=== PATIENT | male | born 1945 | race Caucasian/White ===

== ENCOUNTER 2017-01-23 17:39 | Inpatient (IN) | payer OTHER ==
--- NOTE | 2017-01-23 17:51 | CPEKG ---
Heart Rate: 65 RR Interval: 923 P-R Interval: 204 QRSD Interval: 140 QT Interval: 432 QTC Interval: 450 P [place]: 56 QRS [place]: -75 T Wave [place]: 58 EKG Severity - ABNORMAL ECG - EKG Impression: SINUS RHYTHM EKG Impression: PROBABLE LEFT ATRIAL ABNORMALITY EKG Impression: RIGHT BUNDLE BRANCH BLOCK EKG Impression: INFERIOR INFARCT, AGE INDETERMINATE Electronically Signed By: Gabriele Faith 25-Jan-2017 15:12:07
[2017-01-23] MEDS ORDERED: ASPIRIN 81 MG CHEWABLE TAB PO ONE (17:59)
[2017-01-23 18:06] LABS: % IMMATURE GRANULYOCYTES 0.4 % (0.0-1.1); ABSOLUTE IMMATURE GRANULOCYTES 0.04 10^3/uL (0.00-0.10); ADD DIFF? NO; ADD MORPH? NO; ADD SCAN? NO; ATYPICAL LYMPHOCYTE FLAG 10 (0-99); FRAGMENT RBC FLAG 0 (0-99); HEMATOCRIT 43.2 % (40.0-51.0); HEMOGLOBIN 14.8 g/dL (13.7-17.5); LEFT SHIFT FLG 0 (0-99); LIPEMIA HEMOLYSIS FLAG 90 (0-99); MEAN CELL HEMOGLOBIN 32.7 pg (27.9-34.1); MEAN CELL HEMOGLOBIN CONCENTR. 34.3 g/dL (32.4-36.7); MEAN CELL VOLUME 95.4 fL (81.5-99.8); MEAN PLATELET VOLUME 10.8 fL (8.7-11.7); PLATELET CLUMPS FLAG 10 (0-99); PLATELET COUNT 190 10^3/uL (150-400); RED BLOOD CELL COUNT 4.53 10^6/uL (4.40-6.38); RED CELL DISTRIBUTION WIDTH 13.1 % (11.5-15.2)
[2017-01-23 18:18] LABS: ANION GAP 11 mEq/L (8-16); CALCIUM 9.6 mg/dL (8.5-10.4); CARBON DIOXIDE 21 mEq/l (22-31); CHLORIDE 109 mEq/L (97-110); CREATININE 1.1 mg/dL (0.7-1.3); GLOMERULAR FILTRATION RATE > 60; GLUCOSE 96 mg/dL (70-100); POTASSIUM 5.1 mEq/L (3.5-5.2); SODIUM 141 mEq/L (134-144); SPECIMEN HEMOLYSIS 129
[2017-01-23 18:29] LABS: TROPONIN I 0.231 ng/mL (0-0.034)
--- NOTE | 2017-01-23 18:30 | EDPHY ---
HPI/HX/ROS/PE/MDM Narrative: CHIEF COMPLAINT: Chest pain. HPI: This patient is a 71 year old male arriving with his complaining of chest pain onset late this morning. He had been doing yard work this morning, and came in to eat an apple, and developed chest pain that he thought might be indigestion. The pain increased and spread from shoulder to shoulder, and he felt pressure like "a horse standing on my chest". This pain is similar to previous CABG, but not as severe. He states his hands became cold and numb. He took three doses of Nitro as prescribed with no relief. He was able to fall asleep for about two hours, but when he woke, the pain was still present. He took 650mg of naproxen sodium and his metoprolol, which caused some stomach discomfort but had no effect on his chest pain. His discomfort has been between 7 and 9/10 in severity. REVIEW OF SYSTEMS: Aside from elements discussed in the HPI, a comprehensive 10-point review of systems was reviewed and is negative. PMH: CABG SOCIAL HISTORY: at bedside. Dr. Kaur insurance consultant. PHYSICAL EXAM: General:Patient is alert, in no acute distress. ENT:Eyes are normal to inspection. ENT inspection normal. Neck: Normal inspection. Full range of motion. Respiratory:No respiratory distress. Breath sounds normal bilaterally. Cardiovascular: Regular rate and rhythm. Strong peripheral pulses. Normal cap refill. Abdomen:The abdomen is nontender to palpation. There are no peritoneal signs. There are normal bowel sounds. Back: Normal to inspection. No tenderness to palpation. Skin: Normal color. No rash. Warm and dry. Extremities: Normal appearance. Full range of motion. Neuro: Oriented x3. Normal motor function. Normal sensory function. Portions of this note were transcribed by an ED scribe. I personally performed the history, physical exam, and medical decision making; and confirm the accuracy of the information in the transcribed note. ED Course: Plan for EKG, chest x-ray, labs including CBC, BMP, Troponin. The 12 lead EKG was interpreted by myself. See hard copy and/or "tracemaster" electronic copy for interpretation. Troponin elevated at 0.231 18:[address] Larios, insurance consultant. Patient transferred to care of Dr. Fernandez for cardiac catheterization. MDM: This patient presents with ongoing chest pain in the setting of CABG and elevated troponin. As such, I think he is having an NSTEMI and requires catheterization urgently. I see no signs of PE, PTX, TAD or PNA. - Data Points Laboratory Results: Laboratory Results 01/23/17 17:55 01/23/17 17:55 01/23/17 01/23/17 17:55 17:55 WBC 10.06 10^3/uL H 10^3/uL (3.80-9.50) RBC 4.53 10^6/uL 10^6/uL (4.40-6.38) Hgb 14.8 g/dL g/dL (13.7-17.5) Hct 43.2 % % (40.0-51.0) MCV 95.4 fL fL (81.5-99.8) MCH 32.7 pg pg (27.9-34.1) MCHC 34.3 g/dL g/dL (32.4-36.7) RDW 13.1 % % (11.5-15.2) Plt Count 190 10^3/uL 10^3/uL (150-400) MPV 10.8 fL fL (8.7-11.7) Neut % (Auto) 70.2 % % (39.3-74.2) Lymph % (Auto) 21.4 % % (15.0-45.0) [place] % (Auto) 6.1 % % (4.5-13.0) Eos % (Auto) 1.4 % % (0.6-7.6) Baso % (Auto) 0.5 % % (0.3-1.7) Nucleat RBC Rel Count 0.0 % % (0.0-0.2) Absolute Neuts (auto) 7.07 10^3/uL H 10^3/uL (1.70-6.50) Absolute Lymphs (auto) 2.15 10^3/uL 10^3/uL (1.00-3.00) Absolute Monos (auto) 0.61 10^3/uL 10^3/uL (0.30-0.80) Absolute Eos (auto) 0.14 10^3/uL 10^3/uL (0.03-0.40) Absolute Basos (auto) 0.05 10^3/uL 10^3/uL (0.02-0.10) Absolute Nucleated RBC 0.00 10^3/uL 10^3/uL (0-0.01) Immature Gran % 0.4 % % (0.0-1.1) Immature Gran # 0.04 10^3/uL 10^3/uL (0.00-0.10) Sodium 141 mEq/L mEq/L (134-144) Potassium 5.1 mEq/L mEq/L (3.5-5.2) Chloride 109 mEq/L mEq/L (97-110) Carbon Dioxide 21 mEq/l L mEq/l (22-31) Anion Gap 11 mEq/L mEq/L (8-16) BUN 23 mg/dL mg/dL (7-23) Creatinine 1.1 mg/dL mg/dL (0.7-1.3) Estimated GFR > 60 Glucose 96 mg/dL mg/dL (70-100) Calcium 9.6 mg/dL mg/dL (8.5-10.4) Troponin I 0.231 ng/mL H ng/mL (0-0.034) Specimen Hemolysis 129 Medications Given: Discontinued Medications Aspirin (Aspirin) 324 mg PO EDNOW ONE Stop: 01/23/17 18:00 Last Admin: 01/23/17 18:02 Dose: 324 mg Clopidogrel Bisulfate (Plavix) 600 mg PO ONCE ONE Stop: 01/23/17 20:53 Last Admin: 01/23/17 21:29 Dose: Not Given Morphine Sulfate (Morphine) 4 mg IVP EDNOW ONE Stop: 01/23/17 18:32 Last Admin: 01/23/17 18:33 Dose: 4 mg General Time Seen by Provider: 01/23/17 18:06 Initial Vital Signs: Initial Vital Signs Temperature (C) 36.6 C 01/23/17 17:40 Heart Rate 68 01/23/17 17:40 Respiratory Rate 18 01/23/17 17:40 Blood Pressure 150/67 H 01/23/17 17:40 O2 Sat (%) 94 01/23/17 17:40 O2 Delivery Mode Room Air Allergies/Adverse Reactions: Penicillins Allergy (Severe, Verified 01/23/17 17:41) Swelling/neck,face,throat Sulfa (Sulfonamide Antibiotics) Allergy (Unknown, Verified 01/23/17 17:41) Unknown codeine [Codeine] Allergy (Verified 01/23/17 17:41) DEDRICK Adverse Reaction (Unknown, Uncoded 02/01/14 10:12) Unknown Home Medications: Medication Instructions Recorded Aspirin EC [Aspirin EC 81 mg] 81 mg PO DAILY 04/03/11 Acetaminophen [Tylenol ES 500 mg 500 mg PO Q6 PRN 01/23/17 (*)] Calcium Carb W/Vit D [Calcium Carb 500 mg PO DAILY 01/23/17 W/Vit D 500/200 (*)] Docusate Sodium [Colace 100 MG (*)] 100 mg PO DAILY PRN 01/23/17 FLUoxetine [Prozac 10 MG (*)] 10 mg PO DAILY 01/23/17 Furosemide [Lasix 20 MG (*)] 20 mg PO DAILY 01/23/17 Lisinopril [Zestril 5 mg (*)] 5 mg PO DAILY 01/23/17 Metoprolol Succinate Xr [Toprol Xl 25 mg PO DAILY 01/23/17 25 mg (*)] Naproxen Sodium 550 mg PO DAILY@12 01/23/17 Nitroglycerin [Nitrostat 0.4 mg 0.4 mg SL Q5M PRN 01/23/17 (*)] Pantoprazole Sodium [Protonix 40mg 40 mg PO DAILY 01/23/17 (*)] Simvastatin [Zocor] 40 mg PO DAILY18 01/23/17 Departure - Departure Disposition: To OP Cath/Surgery Clinical Impression: Non-STEMI (non-ST elevated myocardial infarction) Condition: Fair Report Scribed for: Matt Pan Report Scribed by: Fatemeh Douglas Date of Report: 01/23/17 Time of Report: 21:57
[2017-01-23] MEDS ORDERED: LIDOCAINE 1% 300 MG/30 ML SDV ONE (19:25)
[2017-01-23] MEDS ORDERED: fentaNYL 100 MCG/2 ML INJ ONE ×2 (19:25→20:10)
[2017-01-23] MEDS ORDERED: MIDAZOLAM 2 MG/2 ML VIAL ONE ×3 (19:25→20:10)
[2017-01-23] MEDS ORDERED: IOPAMIDOL (ISOVUE-370) 150 ML BTL IV ONE ×2 (19:25→20:19)
--- NOTE | 2017-01-23 19:38 | PDGENHP ---
History and Physical - Chief Complaint Chest pain - History of Present Illness 71-year-old male known severe coronary disease status post 4 vessel bypass graft last had a coronary angiogram in 2012 at that time he had subtotal left main with filling of the LAD and circumflex artery. There was a saphenous vein graft to the posterior lateral branches that was widely patent. There is a saphenous vein graft to a small diagonal. There was a mammary artery to the LAD. At that time his ejection fraction was normal. He has done well since that time until today at about 1 o'clock when he developed the acute onset of a horse sitting on his chest was associated with a toothache. There was no significant shortness of breath there was mild nausea with the need to burp. He had no diaphoresis. He called the on-call doctor who advised him to come to the emergency department on arrival to the ER he was continuing to have discomfort this was unrelieved with nitroglycerin is associated with elevated troponin and I am asked to evaluate the patient on my arrival is continued to have 6-7 chest discomfort associated with diaphoresis and pallor. He denies current nausea vomiting. He has had no PND orthopnea. He has had no palpitations or syncope. History Information - Allergies/Home Medication List Allergies/Adverse Reactions: Penicillins Allergy (Severe, Verified 01/23/17 17:41) Swelling/neck,face,throat Sulfa (Sulfonamide Antibiotics) Allergy (Unknown, Verified 01/23/17 17:41) Unknown codeine [Codeine] Allergy (Verified 01/23/17 17:41) DEDRICK Adverse Reaction (Unknown, Uncoded 02/01/14 10:12) Unknown Home Medications: Aspirin EC [Aspirin EC 81 mg] 81 mg PO DAILY 04/03/11 [Last Taken Unknown] Atorvastatin Calcium [Lipitor 20 mg] 40 mg PO DAILY 04/03/11 [Last Taken Unknown ] Furosemide [Lasix] 20 mg PO 04/03/11 [Last Taken Unknown] Imdur 04/03/11 [Last Taken Unknown] Lisinopril 5 mg PO 04/03/11 [Last Taken Unknown] Metoprolol Tartrate [Lopressor] 25 mg PO 04/03/11 [Last Taken Unknown] Prilosec 04/03/11 [Last Taken Unknown] Nitroglycerin [Nitrostat 0.4 mg (*)] 0.4 mg SL Q5M PRN 01/23/17 [Last Taken Unknown] I have personally reviewed and updated: medical history, surgical history - Past Medical History coronary artery disease - Family History Positive for: non-pertinent - Social History Smoking Status: Never smoked Review of Systems Constitutional: Reports: diaphoresis. Denies: chills, fever EENMT: Reports: mouth pain Cardiac: Reports: chest pain. Denies: lightheadedness, palpitations, syncope Respiratory: Reports: no symptoms Gastrointestinal: Reports: nausea. Denies: black stools, abdominal pain, constipation Genitourinary: Reports: no symptoms Muscolosketal: Reports: no symptoms Skin: Reports: no symptoms Neurological: Reports: no symptoms Hematologic/Lymphatic: Reports: no symptoms Immunologic/Allergy: Reports: no symptoms Physical Exam Temp Pulse Resp BP Pulse Ox 36.6 C 65 20 147/85 H 96 01/23/17 17:40 01/23/17 18:03 01/23/17 18:03 01/23/17 18:03 01/23/17 18:03 Constitutional: uncomfortable Eyes: anicteric sclera, EOMI Ears, Nose, Mouth, Throat: moist mucous membranes Cardiovascular: regular rate and rhythym, no murmur, rub, or gallop, pulses symmetric bilaterally, tachycardia, No JVD Peripheral Pulses: 1+: carotid (R), carotid (L), femoral (R), femoral (L), dorsalis-pedis (R), dorsalis-pedis (L) Respiratory: no respiratory distress, no rales or rhonchi Gastrointestinal: normoactive bowel sounds, soft, non-tender abdomen, no palpable masses Genitourinary: no bladder fullness, no bladder tenderness Skin: warm, no rashes or abrasions Musculoskeletal: full muscle strength, no muscle tenderness Neurologic: AAOx3, sensation intact bilaterally, No weakness, No numbness, No facial droop Psychiatric: interacting appropriately, anxious Lymph, Heme, Immunologic: no cervical LAD, no supraclavicular LAD Lab Data & Imaging Review 01/23/17 17:55 01/23/17 17:55 WBC 10.06 10^3/uL (3.80-9.50) H 01/23/17 17:55 RBC 4.53 10^6/uL (4.40-6.38) 01/23/17 17:55 Hgb 14.8 g/dL (13.7-17.5) 01/23/17 17:55 Hct 43.2 % (40.0-51.0) 01/23/17 17:55 MCV 95.4 fL (81.5-99.8) 01/23/17 17:55 MCH 32.7 pg (27.9-34.1) 01/23/17 17:55 MCHC 34.3 g/dL (32.4-36.7) 01/23/17 17:55 RDW 13.1 % (11.5-15.2) 01/23/17 17:55 Plt Count 190 10^3/uL (150-400) 01/23/17 17:55 MPV 10.8 fL (8.7-11.7) 01/23/17 17:55 Neut % (Auto) 70.2 % (39.3-74.2) 01/23/17 17:55 Lymph % (Auto) 21.4 % (15.0-45.0) 01/23/17 17:55 [place] % (Auto) 6.1 % (4.5-13.0) 01/23/17 17:55 Eos % (Auto) 1.4 % (0.6-7.6) 01/23/17 17: Baso % (Auto) 0.5 % (0.3-1.7) 01/23/17 17: Nucleat RBC Rel Count 0.0 % (0.0-0.2) 01/23/17 17: Absolute Neuts (auto) 7.07 10^3/uL (1.70-6.50) H 01/23/17 17:55 Absolute Lymphs (auto) 2.15 10^3/uL (1.00-3.00) 01/23/17 17:55 Absolute Monos (auto) 0.61 10^3/uL (0.30-0.80) 01/23/17 17:55 Absolute Eos (auto) 0.14 10^3/uL (0.03-0.40) 01/23/17 17:55 Absolute Basos (auto) 0.05 10^3/uL (0.02-0.10) 07/24/17 17:55 Absolute Nucleated RBC 0.00 10^3/uL (0-0.01) 01/23/17 17:55 Immature Gran % 0.4 % (0.0-1.1) 01/23/17 17:55 Immature Gran # 0.04 10^3/uL (0.00-0.10) 01/23/17 17:55 Sodium 141 mEq/L (134-144) 01/23/17 17:55 Potassium 5.1 mEq/L (3.5-5.2) 01/23/17 17:55 Chloride 109 mEq/L (97-110) 01/23/17 17:55 Carbon Dioxide 21 mEq/l (22-31) L 01/23/17 17:55 Anion Gap 11 mEq/L (8-16) 01/23/17 17:55 BUN 23 mg/dL (7-23) 01/23/17 17:55 Creatinine 1.1 mg/dL (0.7-1.3) 01/23/17 17:55 Estimated GFR > 60 01/23/17 17:55 Glucose 96 mg/dL (70-100) 01/23/17 17:55 Calcium 9.6 mg/dL (8.5-10.4) 01/23/17 17:55 Troponin I 0.231 ng/mL (0-0.034) H 01/23/17 17:55 Specimen Hemolysis 129 01/23/17 17:55 Imaging Review: Coronary angiogram from 19/09 routine reviewed. This revealed a small vein graft to a small diagonal branch. A large skip graft to the posterior lateral branches. Patent mammary artery to the LAD associated with critical left main disease in a nondominant right coronary. Ventriculogram showed normal ejection fraction Visualized and Interpreted EKG results: Yes EKG Interpretation: Positive for: right bundle branch block (T-wave inversions across the anterior precordium identified.) Assessment & Plan Assessment: Non-STEMI (non-ST elevated myocardial infarction) (Acute) Impression: Ongoing chest discomfort associated with elevation in troponin nondiagnostic EKG in patient with known coronary disease. Based on prior angiograms would suspect vein graft to the small obtuse marginal branch is culprit vessel with minimal EKG changes minimal hemodynamic changes. With ongoing symptoms despite nitroglycerin and aggressive medical therapy would recommend a diagnostic/therapeutic angiogram. Risks and benefits of this approach were discussed will proceed right femoral artery approach. Plan: Coronary angiogram with potential intervention. Continued aggressive medical therapy.
[2017-01-23] MEDS ORDERED: FAMOTIDINE 20 MG/NACL/50 ML BAG IV ONE (19:46)
[2017-01-23] MEDS ORDERED: BIVALIRUDIN 250 MG/5 ML VIAL IV ONE (19:55)
[2017-01-23] MEDS ORDERED: NITROGLYCERIN 1,500 MCG/15 ML VIAL MISC ONE (19:55)
[2017-01-23] MEDS ORDERED: METOPROLOL TARTRATE 5 MG/5 ML INJ ONE (20:09)
[2017-01-23] MEDS ORDERED: HEPARIN 10,000 UNIT/10 ML MDV ONE (20:23)
[2017-01-23] MEDS ORDERED: EPTIFIBATIDE 20 MG/10 ML VIAL IVP ONE (20:35)
[2017-01-23] MEDS ORDERED: NITROGLYCERIN 0.4 MG BTL SL PRN (20:52)
[2017-01-23] MEDS ORDERED: ATROPINE SULFATE 1 MG/10 ML SYR IVP PRN (20:52)
[2017-01-23] MEDS ORDERED: TEMAZEPAM 15 MG CAP PO PRN (20:52)
[2017-01-23] MEDS ORDERED: LORazepam 2 MG/ML INJ IVP PRN (20:52)
[2017-01-23] MEDS ORDERED: CLOPIDOGREL BISULFATE 75 MG TAB PO ONE (20:52)
[2017-01-23] MEDS ORDERED: ONDANSETRON 4 MG/2 ML VIAL IVP PRN (20:52)
[2017-01-23] MEDS ORDERED: METOPROLOL TARTRATE 100 MG TAB PO SCH (21:00)
[2017-01-23] MEDS ORDERED: NS 1,000 ML IV SCH (21:00)
[2017-01-23] MEDS ORDERED: EPTIFIBATIDE 100 ML IV SCH (21:00)
--- NOTE | 2017-01-23 21:01 | PDDXCAT ---
Diagnostic Cath Note - . Date: 01/23/17 Transfer Coordinator: Jim Indication: other (NSTEMI) - Materials Left Heart Cath size: 6F Left Heart Cath materials: standard multipack (JL4, JR4, pigtail), other (JARAMILLO, RCB) - Findings-Left Heart Catheterization LM: Subtotaled distally LAD: 100% occluded LCX: To and fro flow distally with no new focal stenosis RCA: Not injected: Previously non dominant rSVG: Patent to the posterolateral branches. 100% occluded a branch was small diagonal JARAMILLO: Patent to the LAD diagonal system EDP: 12 mm of mercury LVEF: 60% Wall motion: None Complications: None Estimated blood loss: <50ml Closure method: Angioseal Assessment: Non ST segment elevation myocardial infarction with thrombotic occlusion of the saphenous vein graft to the small lateral wall branch. Patent mammary artery to the LAD. Patent vein graft to the posterolateral wall. Severe 3 vessel wilton disease. Normal LV systolic function Plan: PCI of the vein graft to the lateral wall Intervention: Procedure: PCI of the saphenous vein graft to the lateral wall with thrombectomy and stenting. After reviewing diagnostic angiograms elected to proceed with emergency PCI. Patient was anticoagulated with Angiomax. Using a 6 [place] LCB guiding catheter saphenous vein graft was selectively intubated. Using a 0.014 luge wire the vein graft was entered the wire parked in the distal vessel. Multiple inflations with a 2 mm balloon were made to try to reestablish antegrade flow. There was penetration of the dye. It was elected to proceed with thrombectomy. Using a 6 [place] long back to me catheter thrombectomy was performed x2. Repeat angiograms revealed VIC grade 1 +to 2 flow. The wire was withdrawn during attempts to use a Angiojet thrombectomy catheter. Angiogram revealed penetration of dye it to the end of the posterolateral branch VIC grade 2 + flow. Distal lesion was seen in the vein graft. Elected to proceed with stenting. The vein graft was rewired with a 0.014 luge wire. A 2.5 x 32 mm bare metal stent was placed distally and deployed using a single inflation. A 2.75 x 32 mm stent was overlapped. A 3.0 x 38 mm drug-eluting was stent was placed to the ostium. Repeat angiogram showed VIC grade 2 +flow with complete filling of the lateral wall branch. Patient was started on an Integrilin infusion due to large thrombus burden. Therapeutic ACT was confirmed. The sheaths were removed using Angio-Seal. The patient has taken the ICU for continued care. Final diagnosis: 1. Non ST segment elevation myocardial infarction with thrombotic occlusion of the vein graft to lateral wall. 2. Status post successful PCI and stenting with thrombectomy. 3. Occlusion associated with normal LV systolic function and no regional wall motion abnormalities. Will pursue aggressive secondary prevention clinical follow-up. Patient Problems: Problems Problem Status Onset Non-STEMI (non-ST elevated myocardial infarction) Acute
[2017-01-23] MEDS ORDERED: CLOPIDOGREL BISULFATE 75 MG TAB ONE (21:03)
[2017-01-23] MEDS: METOPROLOL TARTRATE 50 MG TAB PO SCH (22:28)
[2017-01-23] MEDS: FAMOTIDINE 20 MG TAB PO SCH (22:40)
[2017-01-23 23:35] LABS: CK-MB INTERPRETATION POSITIVE (NEGATIVE)
[2017-01-24 02:34] LABS: CK-MB INTERPRETATION POSITIVE (NEGATIVE)
[2017-01-24 05:38] LABS: % IMMATURE GRANULYOCYTES 0.2 % (0.0-1.1); ABSOLUTE IMMATURE GRANULOCYTES 0.02 10^3/uL (0.00-0.10); ADD DIFF? NO; ADD MORPH? NO; ADD SCAN? NO; ATYPICAL LYMPHOCYTE FLAG 10 (0-99); FRAGMENT RBC FLAG 0 (0-99); HEMATOCRIT 40.6 % (40.0-51.0); HEMOGLOBIN 13.9 g/dL (13.7-17.5); LEFT SHIFT FLG 0 (0-99); LIPEMIA HEMOLYSIS FLAG 90 (0-99); MEAN CELL HEMOGLOBIN 32.6 pg (27.9-34.1); MEAN CELL HEMOGLOBIN CONCENTR. 34.2 g/dL (32.4-36.7); MEAN CELL VOLUME 95.1 fL (81.5-99.8); MEAN PLATELET VOLUME 10.9 fL (8.7-11.7); PLATELET CLUMPS FLAG 0 (0-99); PLATELET COUNT 157 10^3/uL (150-400); RED BLOOD CELL COUNT 4.27 10^6/uL (4.40-6.38); RED CELL DISTRIBUTION WIDTH 13.2 % (11.5-15.2)
[2017-01-24 05:56] LABS: ANION GAP 7 mEq/L (8-16); ASPARTATE AMINOTRANSFERASE 60 IU/L (17-59); BILIRUBIN,TOTAL 0.6 mg/dL (0.1-1.4); CALCIUM 9.2 mg/dL (8.5-10.4); CARBON DIOXIDE 23 mEq/l (22-31); CHLORIDE 111 mEq/L (97-110); CHOLESTEROL 174 mg/dL (140-220); CHOLESTEROL/HDL RATIO 4.58 RATIO (1.00-4.97); GLOMERULAR FILTRATION RATE > 60; GLUCOSE 101 mg/dL (70-100); HIGH DENSITY LIPOPROTEIN 38 mg/dL (40-65); LACTATE DEHYDROGENASE 511 IU/L (313-618); LDL/HDL RATIO 2.26 RATIO (1.00-3.64); LOW DENSITY LIPOPROTEIN 86 mg/dL (80-100); MAGNESIUM 1.9 mg/dL (1.6-2.3); NON-HIGH DENSITY LIPOPROTEIN 136 mg/dL (90-129); SODIUM 141 mEq/L (134-144); TRIGLYCERIDE 252 mg/dL (40-150); VERY LOW DENSITY LIPOPROTEINS 50 mg/dL (8-25)
[2017-01-24 06:12] LABS: CK-MB INTERPRETATION POSITIVE (NEGATIVE)
--- NOTE | 2017-01-24 07:50 | CPEKG ---
Heart Rate: 59 RR Interval: 1017 P-R Interval: 216 QRSD Interval: 134 QT Interval: 452 QTC Interval: 448 P [place]: 47 QRS [place]: -71 T Wave [place]: 15 EKG Severity - ABNORMAL ECG - EKG Impression: SINUS RHYTHM EKG Impression: RIGHT BUNDLE BRANCH BLOCK EKG Impression: INFERIOR INFARCT, AGE INDETERMINATE Electronically Signed By: Spike Fernandez 25-Jan-2017 21:02:13
[2017-01-24] MEDS: FAMOTIDINE 20 MG TAB PO SCH ×2 (08:41→21:20)
[2017-01-24] MEDS: METOPROLOL TARTRATE 50 MG TAB PO SCH ×2 (08:42→21:21)
[2017-01-24] MEDS: ATORVASTATIN CALCIUM 40 MG TAB PO SCH (08:42)
[2017-01-24] MEDS: LISINOPRIL 5 MG TAB PO SCH (08:42)
[2017-01-24] MEDS: CLOPIDOGREL BISULFATE 75 MG TAB PO SCH (08:42)
[2017-01-24] MEDS: ASPIRIN EC 325 MG TAB PO SCH (08:42)
[2017-01-24] MEDS ORDERED: ATORVASTATIN CALCIUM 20 MG TAB PO SCH (09:00)
--- NOTE | 2017-01-24 09:00 | CPEKG ---
Heart Rate: 59 RR Interval: 1017 P-R Interval: 180 QRSD Interval: 146 QT Interval: 468 QTC Interval: 464 P [place]: 61 QRS [place]: -77 T Wave [place]: -12 EKG Severity - ABNORMAL ECG - EKG Impression: SINUS RHYTHM EKG Impression: VENTRICULAR PREMATURE COMPLEX EKG Impression: RBBB AND LAFB Electronically Signed By: Spike Fernandez 24-Jan-2017 14:34:56
--- NOTE | 2017-01-24 12:06 | ECHO ---
[id number] + + [address] : : [place] [address] : : [phone] + + Adult Echocardiographic Report + --+ :Name: MISTY DÍAZ PStudy Date: 01/24/2017 08:00 AM : : Hospital Admission Number: [id number] : :: 1945 Gender: Male Height: 71 in : :Age: 71 yrs Race: WH,White Weight: 210 lb : :Reason For Study: Follow up post cath : : BSA: 2.2 meter s2: :History: CABG/stent : + --+ MMode/2D Measurements \T\ Calculations IVSd: 0.78 cm LVIDd: 5.4 cm FS: 33.5 % Ao root diam: 3.8 cm LVPWd: 1.3 cm LVIDs: 3.6 cm EDV(Teich): 143.4 ml LA dimension: 4.4 cm ESV(Teich): 54.9 ml EF(Teich): 61.7 % Normal Measurement Values: + + :LVIDd (3.5-5.7cm) IVSd (0.6-1.1cm) LVPWd (0.6-1.1cm) Aortic Root (2.0-3.7cm)Left Atrium (1.5-4.0cm): :LV Vol(d) (76-115ml) LV Vol(s) (29-48ml) Ejec Fraction (50-65%)PV Alex (0.6- 1.2m/s) TV Alex (0.4-1.0m/s) : :MV E Alex (0.8-1.0m/s)MV A Alex (0.3-1.0m/s)LVOT Alex (0.7-1.2m/s) Asc Ao Alex ( 0.9-1.8m/s) : + + Doppler Measurements \T\ Calculations MV E max alex: 70.1 cm/sec Ao V2 max: 115.4 cm/sec TR max alex: 256.5 cm/sec MV A max alex: 62.7 cm/sec Ao max P.3 mmHg TR max P.3 mmHg MV E/A: 1.1 RAP systole: 5.0 mmHg RVSP(TR): 31.3 mmHg Left Ventricle The left ventricle is normal in size. There is normal left ventricular wall thickness. Left ventricular systolic function is normal. Ejection Fraction = 60-65%. LV basal inferolateral wall appears hypokinetic. Right Ventricle The right ventricle is normal in size and function. Atria The left atrium is mildly dilated. Right atrial size is normal. The interatrial septum is intact with no evidence for an atrial septal defect. Mitral Valve There is moderate mitral annular calcification. There is no evidence of mitral valve prolapse. There is no mitral valve stenosis. Tricuspid Valve Normal tricuspid valve. There is mild tricuspid regurgitation. Right ventricular systolic pressure is normal. Aortic Valve The aortic valve is trileaflet. The aortic valve opens well. Mild aortic calcification. There is no aortic stenosis. There is no aortic insufficiency. Pulmonic Valve The pulmonic valve is normal in structure and function. Trace pulmonic valvular regurgitation. Great Vessels The aortic root is normal size. Pericardium/Pleural There is no pericardial effusion. There is a fat pad seen. Conclusion A complete two-dimensional transthoracic echocardiogram was performed (2D, M-mode, Doppler and color flow Doppler). Left ventricular systolic function is normal. LV basal inferolateral wall appears hypokinetic. Ejection Fraction = 60-65%. The left atrium is mildly dilated. There is mild tricuspid regurgitation. Right ventricular systolic pressure is normal. Mild aortic calcification. Trace pulmonic valvular regurgitation. There is a fat pad seen. Final Reading Physician: Bassem Velasquez signed on 01/24/2017 12:05 PM Ordering Physician: FELICITAS KIRAN Performed By: Antonia Johnston, HAILEY
[2017-01-24 12:47] LABS: HEMOGLOBIN A1C 5.4 % (4.0-6.0)
[2017-01-24 13:35] LABS: CK-MB INTERPRETATION POSITIVE (NEGATIVE)
--- NOTE | 2017-01-24 18:43 | PDCARPN ---
Cardiology Progress Note Assessment/Plan: Non-ST Segment Elevation Myocardial Infarction- No further chest discomfort. troponin up to 9.15 this morning. No arrhythmias or CHF Continue to trend troponin. Fortunately, LV function is normal. Coronary Artery Disease- History of left main and multivessel CAD, status post 4 vessel CABG in 2007. Culprit for his current NSTEMI was occlusion of the SVG to obtuse marginal branch. Treated with PCI and extensive stenting. Flow remained VIC-II into a very small obtuse marginal branch. Continue appropriate secondary prevention medications. Disposition- likely home tomorrow pending demonstration of a downward trend in his troponin. 01/24/17 18:41 Subjective: No further chest pain. Reviewed/Discussed With: family Objective: Vital Signs (8 Hrs) Pulse Resp BP Pulse Ox 01/24/17 15:51 56 L 14 139/62 H 97 01/24/17 14:00 57 L 21 H 96 01/24/17 12:00 47 L 16 121/56 H 95 Intake/Output (24 Hrs) 01/23/17 01/24/17 01/25/17 05:59 05:59 05:59 Intake Total 1233.9 1414 Output Total 500 325 Balance 733.9 1089 Intake: Oral (ml) 600 1000 IV Intake (ml) 586 IV Infused (ml) 47.9 414 Eptifibatide 100 ml @ 5.6 47.9 37 mls/hr IV CONT EBEN Rx#: [id number] Ns 1,000 ml @ 75 mls/hr 377 IV CONT EBEN Rx#: [id number] Output: Urine (ml) 500 325 Urinal 500 325 Other: Weight 96.8 kg Number of Voids 1 Toilet 2 Number of Stools Urinal 1 Result Diagrams: 01/24/17 05:20 01/24/17 05:20 Cardiac Labs: Cardiac Lab Results (72 Hrs) 01/24/17 01/24/17 01/24/17 12:55 05:20 01:30 CK-MB (CK-2) Fraction 40.40 H 51.20 H 51.10 H Troponin I 9.150 H 8.380 H 6.530 H 01/23/17 20:55 CK-MB (CK-2) Fraction 41.60 H Troponin I 5.010 H - Physical Exam Constitutional: WDWN, no apparent distress Eyes: anicteric sclera Ears, Nose, Mouth, Throat: moist mucous membranes Cardiovascular: regular rate and rhythm, no murmurs, no gallops Respiratory: clear to auscultate bilat Gastrointestinal: normoactive bowel sounds, no tenderness, no masses Skin: no rashes, no edema Neurologic: AAOx3 Psychiatric: not anxious ICD10 Worksheet Patient Problems: Problems Problem Status Onset Chronic Disease Mgm/Transitional Care Acute Non-STEMI (non-ST elevated myocardial infarction) Acute
[2017-01-24] MEDS ORDERED: ACETAMINOPHEN 325 MG TAB PO PRN (21:12)
[2017-01-24 22:07] LABS: CK-MB INTERPRETATION POSITIVE (NEGATIVE)
[2017-01-25 05:13] VITALS: TEMP 97.4
--- NOTE | 2017-01-25 06:03 | CPEKG ---
Heart Rate: 54 RR Interval: 1111 P-R Interval: 224 QRSD Interval: 136 QT Interval: 448 QTC Interval: 425 P [place]: 44 QRS [place]: -66 T Wave [place]: -25 EKG Severity - ABNORMAL ECG - EKG Impression: SINUS RHYTHM EKG Impression: VENTRICULAR PREMATURE COMPLEX EKG Impression: FIRST DEGREE AV BLOCK EKG Impression: RIGHT BUNDLE BRANCH BLOCK EKG Impression: INFERIOR INFARCT, AGE INDETERMINATE Electronically Signed By: Gabriele Faith 25-Jan-2017 15:10:47
[2017-01-25 07:53] VITALS: BP 153/77; RESP 19; O2SAT 100
[2017-01-25] MEDS: CLOPIDOGREL BISULFATE 75 MG TAB PO SCH (09:00)
[2017-01-25] MEDS: FAMOTIDINE 20 MG TAB PO SCH (09:00)
[2017-01-25] MEDS: ATORVASTATIN CALCIUM 40 MG TAB PO SCH (09:00)
[2017-01-25] MEDS: ASPIRIN EC 325 MG TAB PO SCH (09:00)
[2017-01-25] MEDS: LISINOPRIL 5 MG TAB PO SCH (09:01)
[2017-01-25] MEDS: METOPROLOL TARTRATE 50 MG TAB PO SCH (09:05)
[2017-01-25 09:06] VITALS: PULSE 60
--- NOTE | 2017-01-25 17:37 | GDS ---
[f rep st] DISCHARGE SUMMARY REASON FOR ADMISSION: Non ST-segment elevation myocardial infarction. HOSPITAL COURSE: Please refer to Dr. Fernandez's dictated history and physical and his cardiac laboratory technician procedure report. Briefly, the patient is a 71-year-old male with a history of coronary artery disease and prior 4-vessel bypass surgery for left main stenosis and multivessel coronary artery dis ease performed in 2007. He presented to the emergency room with acute-onset chest discomfort consis tent with angina. In the emergency room, his ECG demonstrated a chronic right bundle branch block b ut no acute ischemic changes; however, his troponin was elevated at 0.231. Therefore, he was taken to the cardiac laboratory technician by Dr. Fernandez. Angiography demonstrated his previously-documented severe left main and multivessel CAD. His left internal mammary graft to the left anterior descending was patent. A sequential saphenous vein graft to the posterior descending branch and posterolateral bra nch of the RCA was also patent. However, the saphenous vein graft to a small obtuse marginal branch was occluded. He underwent PCI with placement of 3 Synergy drug-eluting stents measuring 2.5 x 32 mm, 2.75 x 32 mm, and 3.0 x 38 mm. There was no significant residual stenosis within the body of th e vein graft. There was somewhat reduced VIC flow rate into the small obtuse marginal branch of th e circumflex. Left ventriculogram demonstrated that the patient's systolic function was preserved w ith an ejection fraction of 60%. Over the subsequent 36 hours, the patient remained stable without recurrent angina, arrhythmias, or evidence of CHF. His troponin peaked at 9.15. A lipid panel demo nstrated an LDL level of 86 on his current dose of simvastatin 40 mg daily. RECOMMENDATIONS AND DISPOSITION: The patient is discharged in good condition. He should continue a cardiac diet. Representatives from cardiac rehab have visited with him, and will arrange for enrol lment. With respect to his medications, he will continue his previous doses of aspirin, metoprolol, and lisinopril. His simvastatin will be replaced with atorvastatin 40 mg daily in an effort to ach ieve an LDL cholesterol of less than 70. Clopidogrel 75 mg daily will be added to his regimen for t he next 12 months. The office staff at [facility] has been instructed to contact the patient to arrange for a followup appointment with Dr. Natasha in the near future. DISCHARGE DIAGNOSES: 1. Non ST-segment elevation myocardial infarction secondary to occlusion of a saphenous vein graft to the circumflex territory. 2. Coronary artery disease with a history of prior coronary bypass graft surgery. 3. Hyperlipidemia. /[id number]/MODL
== END 2017-01-25 13:10 | disposition home or self-care (01) | DRG 247 ==
LOC: F2N 20:35
PROVIDERS: ADMIT Internal Medicine Interventional Cardiology; ATTEND Internal Medicine Interventional Cardiology
PROC: B2121ZZ Fluoroscopy of Single Coronary Artery Bypass Graft using Low Osmolar Contrast (ICD-10-PCS; principal; 2017-01-23)
PROC: 02C03ZZ Extirpation of Matter from Coronary Artery, One Artery, Percutaneous Approach (ICD-10-PCS; principal; 2017-01-23)
PROC: 027036Z Dilation of Coronary Artery, One Artery with Three Drug-eluting Intraluminal Devices, Percutaneous Approach (ICD-10-PCS; principal; 2017-01-23)
PROC: 4A023N7 Measurement of Cardiac Sampling and Pressure, Left Heart, Percutaneous Approach (ICD-10-PCS; principal; 2017-01-23)
PROC: B2161ZZ Fluoroscopy of Right and Left Heart using Low Osmolar Contrast (ICD-10-PCS; principal; 2017-01-23)
DX: I21.4 Non-ST elevation (NSTEMI) myocardial infarction (principal); T82.867A Thrombosis due to cardiac prosthetic devices, implants and grafts, initial encounter; I25.119 Atherosclerotic heart disease of native coronary artery with unspecified angina pectoris; E78.5 Hyperlipidemia, unspecified
CPT/HCPCS: 96374; C1725; C1757; C1760; C1769; C1874; C1876; C1887; C9606; J0583; J1200; J1327; J1644; J2250; J2405; J3010; Q9967

== ENCOUNTER → 2017-01-30 | Outpatient (CLI) | payer OTHER | LOC: BHFA 11:30 | PROVIDERS: ATTEND Internal Medicine Cardiovascular Disease | DX: I21.4 Non-ST elevation (NSTEMI) myocardial infarction (principal); I25.810 Atherosclerosis of coronary artery bypass graft(s) without angina pectoris ==

== ENCOUNTER → 2017-08-23 | Outpatient (CLI) | payer OTHER ==
[~2017-08-23] MED LIST: IOPAMIDOL (ISOVUE-300) 100 ML BTL ONE
== END ==
LOC: FIMAGING 10:08
PROVIDERS: ATTEND Internal Medicine
DX: R10.9 Unspecified abdominal pain (principal); I70.0 Atherosclerosis of aorta; I25.10 Atherosclerotic heart disease of native coronary artery without angina pectoris; C43.71 Malignant melanoma of right lower limb, including hip; Z85.46 Personal history of malignant neoplasm of prostate
CPT/HCPCS: 74177; Q9967

== ENCOUNTER → 2017-10-31 | Outpatient (CLI) | payer OTHER | LOC: BHFA 10:45 | PROVIDERS: ATTEND Internal Medicine Cardiovascular Disease | DX: I25.10 Atherosclerotic heart disease of native coronary artery without angina pectoris (principal) ==

== ENCOUNTER → 2018-03-14 | Outpatient (CLI) | payer OTHER | LOC: BHFA 09:00 | PROVIDERS: ATTEND Internal Medicine Cardiovascular Disease | DX: R07.9 Chest pain, unspecified (principal); I25.10 Atherosclerotic heart disease of native coronary artery without angina pectoris; I25.2 Old myocardial infarction | CPT/HCPCS: 78452; 93017; A9500; J2785 ==

== ENCOUNTER 2018-04-05 07:22 | Observation (INO) | payer OTHER ==
[2018-04-05] MEDS ORDERED: diphenhydrAMINE 25 MG CAP PO ONE ×2 (07:23→07:52)
[2018-04-05] MEDS ORDERED: FAMOTIDINE 20 MG TAB PO ONE (07:23)
[2018-04-05] MEDS ORDERED: ASPIRIN EC 325 MG TAB PO ONE ×2 (07:23→07:52)
[2018-04-05] MEDS ORDERED: DIAZEPAM 5 MG TAB PO ONE (07:23)
[2018-04-05] MEDS ORDERED: NS 1,000 ML IV ONE (07:23)
[2018-04-05] MEDS ORDERED: FAMOTIDINE 20 MG TAB ONE (07:52)
[2018-04-05] MEDS ORDERED: DIAZEPAM 5 MG TAB ONE (07:53)
[2018-04-05 08:14] LABS: PLATELET COUNT 203 10^3/uL (150-400)
[2018-04-05 08:25] LABS: INR 1.04 (0.83-1.16); PROTIME(PATIENT) 13.8 SEC (12.0-15.0)
[2018-04-05] MEDS ORDERED: LIDOCAINE 1% 300 MG/30 ML SDV ONE (09:03)
[2018-04-05] MEDS ORDERED: fentaNYL 100 MCG/2 ML INJ ONE ×2 (09:03→10:09)
[2018-04-05] MEDS ORDERED: VERAPAMIL 5 MG/2 ML VIAL ONE (09:04)
[2018-04-05] MEDS ORDERED: IOPAMIDOL (ISOVUE-370) 150 ML BTL IV ONE ×3 (09:04→11:33)
[2018-04-05] MEDS ORDERED: HEPARIN 10,000 UNIT/10 ML MDV (1,000 UNIT/ML) ONE (09:04)
[2018-04-05] MEDS ORDERED: MIDAZOLAM 2 MG/2 ML VIAL ONE ×3 (09:04→11:00)
--- NOTE | 2018-04-05 09:19 | PDHPUP ---
History & Physical Update H&P update statement: This history and physical update is based on an assessment of the patient which was completed after admission or registration (within 24 hours), but prior to the surgery/procedure. H&P update: changes noted (the patient continues to have angina)
--- NOTE | 2018-04-05 09:19 | PDPROPOC ---
Sedation Plan of Care Sedation Plan of Care: vital signs stable, mental status noted, patient educated of risks, benefits, alternatives, patient can tolerate sedation ASA Classification: ASA 3 Planned drugs: fentanyl, midazolam Mallampati Score: Class 3 Mallampati Reference Image: Patient passed 3-3-2 rule?: Yes
[2018-04-05] MEDS ORDERED: CLOPIDOGREL BISULFATE 75 MG TAB ONE ×2 (09:27→12:06)
[2018-04-05] MEDS ORDERED: BIVALIRUDIN 250 MG/5 ML VIAL IV ONE ×2 (10:31→11:25)
[2018-04-05] MEDS ORDERED: NITROGLYCERIN 1,500 MCG/15 ML VIAL MISC ONE (11:38)
[2018-04-05] MEDS ORDERED: ATROPINE SULFATE 1 MG/10 ML SYR IVP PRN (12:06)
[2018-04-05] MEDS ORDERED: CLOPIDOGREL BISULFATE 75 MG TAB PO ONE (12:06)
[2018-04-05] MEDS ORDERED: LORazepam 2 MG/ML INJ IVP PRN (12:06)
[2018-04-05] MEDS ORDERED: ONDANSETRON 4 MG/2 ML VIAL IVP PRN (12:06)
[2018-04-05] MEDS ORDERED: NITROGLYCERIN 0.4 MG BTL SL PRN (12:06)
[2018-04-05] MEDS ORDERED: TEMAZEPAM 15 MG CAP PO PRN (12:06)
[2018-04-05] MEDS ORDERED: NS 1,000 ML IV SCH (12:15)
--- NOTE | 2018-04-05 16:03 | CPEKG ---
Test Reason : OPEN Blood Pressure : / mmHG Vent. Rate : 055 BPM Atrial Rate : 055 BPM P-R Int : 186 ms QRS Dur : 133 ms QT Int : 458 ms P-R-T Axes : -22 -70 004 degrees QTc Int : 438 ms Sinus rhythm Right bundle branch block LAHB vs old inferior RI Compared with 01/25/2017 similar findings Confirmed by Elsy Richards ([id number]) on 04/05/2018 4:03:10 PM Referred By: Confirmed By:Elsy Richards
--- NOTE | 2018-04-05 16:10 | CPEKG ---
Test Reason : OPEN Blood Pressure : / mmHG Vent. Rate : 050 BPM Atrial Rate : 050 BPM P-R Int : 201 ms QRS Dur : 142 ms QT Int : 469 ms P-R-T Axes : 042 -72 -11 degrees QTc Int : 428 ms Sinus rhythm Right bundle branch block Inferior infarct, age indeterminate Confirmed by Elsy Richards ([id number]) on 04/05/2018 4:09:30 PM Referred By: Confirmed By:Elsy Richards
--- NOTE | 2018-04-05 17:24 | CPIP ---
DATE OF PROCEDURE: 04/05/2018 PROCEDURES PERFORMED: 1. Selective coronary angiography. 2. Left heart catheterization. 3. Left ventriculogram. 4. Selective saphenous vein graft angiography to ramus intermedius or diagonal, noted to be occluded . 5. Saphenous vein graft to the left circumflex, posterior descending artery and posterior left ventr icular branches as a jump graft. 6. Left internal mammary artery angiography to the left anterior descending. 7. Percutaneous transluminal coronary angioplasty and stent placement of the proximal and dominant l eft circumflex with a 4.0 x 16 Synergy drug-eluting stent. 8. Percutaneous transluminal coronary angioplasty and stent placement of the posterior left ventricu lar branch distal to the vein graft tie-in, the posterior left ventricular branch with overlapping 2. 5 x 8, 2.5 x 8, and 2.25 x 8 Synergy drug-eluting stents. 9. Cutting balloon angioplasty of the distal left main and ostial left circumflex with the use of a 2.5 x 8 [facility] cutting balloon. PROCEDURE IN DETAIL: After informed consent was obtained, n.p.o. status was confirmed, the region of the left groin was cleaned, prepped, and draped in sterile fashion. Approximately 10 cc of 1% lidoc jhon was utilized for local anesthesia. A micropuncture set was used to gain access to the right com mon femoral artery, and a 6-Icelandic sheath was placed. Patient then underwent the previously mentione d diagnostic procedure with use of a JL4 and R4 curved coronary catheters, a JARAMILLO curve catheter was used for JARAMILLO injection, and a right coronary bypass catheter was used for vein graft angiography. S katiedanazario wire exchange technique was utilized for all catheter exchanges. The left main coronary lumen is approximately 3.5 mm in size and is subtotally occluded, with a 99% o bstruction of the distal left main. The left main trifurcates into an LAD, ramus, and circumflex sys tem. There is severe disease at the ostial takeoff of the circumflex proper, as well as of the ostia l takeoff of the small ramus vessels and circumflex. There is evidence of competitive flow from appa rently a patent vein graft with VIC-0 antegrade flow with injection of the left coronary system. Th e right coronary artery is nondominant and small, approximately 2 mm in size, and is nondominant, giv es rise to right ventricular branches as its only important tributaries. There is no flow-limiting o bstruction. Luminal irregularity consistent atherosclerosis is present in the proximal segment of th e vessel. JARAMILLO angiography was accomplished. Initially the JR catheter would not seat well. We the n used the JR catheter to inject the vein graft to the high obtuse marginal ramus or branch which had been previously stented over a long segment, and the vessel is totally occluded in its proximal segm ent. A right coronary bypass catheter was used for angiography of the vein graft to the PDA, PLV bra nches. Once this was seated well into the vein graft, it was clear that the vein graft was widely pa tent to the level of the PDA. There was evidence of a 95% obstruction of the PLV branch just distal to the anastomosis with the terminal end of the vein graft. This is a jump graft to the PDA and PLV segments. There was evidence of retrograde filling along the circumflex posteriorly, with a 90% obst ruction of the retrograde limb of the PD into the proximal segments of the LAD and ramus vessels. MA angiography documented the JARAMILLO to be widely patent to the level of the LAD. The LAD is a small v essel approximately 1.5 to 2 mm in size and flows to the anterior apex without flow-limiting obstruct ion, dissection, or thrombus. There is evidence of some retrograde filling into the proximal and ost ial LAD, with some filling of the left circumflex proper with pressurized injection. Patient underwe nt left heart catheterization demonstrating elevated left ventricular end-diastolic pressure measured at 17 mmHg. The patient underwent left ventriculogram in the HERNANDEZ projection demonstrating ejection fraction of 45% to 50%, with basal inferior and distal inferior wall hypokinesis. There was evidence of mitral regurgitation upon pressurized injection, which is estimated at 1+. The visualized portio n of thoracic aorta reveals 3 sinuses of Valsalva most consistent with a trileaflet aortic valve, and there was no evidence of a gradient upon pullback across the aortic valve. A 6-Icelandic EBU catheter with side holes was used for catheter support. The plan was to try to make th e left circumflex vessel have antegrade flow and try to repair the distal PLV segment with an antegra de approach to the iliamna vessel. Angiography documented that there was competitive flow to the leve l of the proximal left circumflex. A 0.014 Intuition wire was advanced across the distal left circum flex and into the proximal portion left circumflex and parked in the distal left circumflex. Attempt s to advance a 4.0 x 16 stent in the proximal circumflex to improve antegrade flow were unsuccessful. balloon angioplasty was performed of the proximal and ostial left circumflex as well as t he distal left main. The wire was switched for a Wiggle wire, and ultimately a cutting balloon angio plasty was performed in the distal left main and ostial left circumflex with multiple and serial ball oon inflations to a maximum pressure of 6-8 atmospheres with improvement in antegrade flow. The prox imal vessel was then stented with a 4.0 x 16 Synergy drug-eluting stent at a maximum pressure of 14 a tmospheres, with excellent angiographic results and 0% residual stenosis status post PTCA and stent p lacement. The Wiggle wire was used along with a Guidezilla Guideliner to perform antegrade injection and a 2nd yvonne wire was placed into the distal left circumflex and into the PLV branch where a 95% o bstruction of the ostial takeoff of the PLV was identified and crossed with the [employer] wir e. This was then primarily stented with a 2.5 x 8 Synergy drug-eluting stent with excellent angiogra phic results and 0% residual stenosis at the site of the lesion. There was VIC-3 flow pre and post lesion stenting, and there was VIC-0 flow in the antegrade flow in the proximal left circumflex and VIC-3 flow post proximal stent implantation through the Guidezilla. Unfortunately, the plaque moved along the vessel wall and ended up migrating distal to the previously implanted stent. This did not respond to removal of the wire or to intravenous nitroglycerin, and therefore the vessel had to be r e-stented, cuffed distally with a 2.5 x 8 Synergy drug-eluting stent. This again propagated the plaq ue more distally, and we ultimately cuffed the distal stented segment with a 2.25 x 8 Synergy drug-el uting stent ultimately deployed at a maximum pressure of 14 atmospheres, with similar results in the distal segment. Because we were approaching a curve in the vessel, I felt that further stenting woul d not be helpful and may result in a kink that could not be resolved. Also did not want to continue to inner layer scrubber tender stent in this relatively small vessel given that it is fed by the vein graft distally. There was a napkin-ring stenosis just distal to the stented segment, which is estimated at least at 6 0%, but a relatively short lesion, and we were thinking that hopefully this may be a spasm that would resolve with time. Again, there was excellent VIC-3 flow to the distal vessel post stent implantat ion. The patient tolerated the procedure well, with improvement in his residual chest discomfort fol lowing PTCA and stent placement, and seems to be feeling well post procedure. IMPRESSION: Successful balloon angioplasty and stent implantation of the proximal and ostial iliamna left circumflex, as well as the posterior left ventricular branch of the circumflex distal to the sap henous vein graft end-to-side anastomosis of the jump graft to the left circumflex posterior descendi ng artery and posterior left ventricular branches. If the patient has a subacute stent thrombosis, i t may be most reasonable to approach the vessel from the iliamna vessel and then to proceed with rebui lding of the distal left main stenosis and bifurcation stenting of the proximal and ostial left anter ior descending, proximal and ostial left circumflex, and distal left main, as this would be a protect ed vessel. /[id number]/MODL
[2018-04-06 04:42] LABS: PLATELET COUNT 173 10^3/uL (150-400)
[2018-04-06] MEDS ORDERED: ASPIRIN EC 325 MG TAB PO SCH (09:00)
[2018-04-06] MEDS ORDERED: CLOPIDOGREL BISULFATE 75 MG TAB PO SCH (09:00)
[2018-04-06] MEDS ORDERED: MELATONIN 3 MG TAB PO PRN (11:36)
[2018-04-06 12:24] VITALS: BP 118/80
--- NOTE | 2018-04-06 15:35 | ASMTLACE ---
[facility]ROYE Length of stay for Answers: 1 day current admission Acuity / Level of Answers: No Care: Did the patient have an inpatient admission? Comorbidities - select Answers: Coronary Artery Disease all that apply # of Emergency department Answers: 0 visits in the last 6 months Score: 3 Date Signed: 04/06/2018 03:30 PM Electronically Signed By:Lexie Ridley RN
--- NOTE | 2018-04-06 17:22 | CPEKG ---
Test Reason : OPEN Blood Pressure : / mmHG Vent. Rate : 055 BPM Atrial Rate : 054 BPM P-R Int : 162 ms QRS Dur : 145 ms QT Int : 532 ms P-R-T Axes : 019 -75 029 degrees QTc Int : 509 ms Sinus rhythm Right bundle branch block LAHB Compared with small R waves now seen in inferior leads Confirmed by Elsy Richards ([id number]) on 04/06/2018 5:22:16 PM Referred By: Confirmed By:Elsy Richards
--- NOTE | 2018-04-06 19:31 | GDS ---
ADMIT DIAGNOSES: 1. Angina. 2. Abnormal nuclear stress test. 3. Known coronary artery disease with coronary artery bypass graft x4 in 2007. 4. Previous intervention of the saphenous vein to the circumflex in 2017. DISCHARGE DIAGNOSES: 1. Status post percutaneous coronary intervention of the proximal and ostial solomon left circumflex as well as posterior left ventricular branch of the circumflex distal to the saphenous vein graft. 2. Known coronary artery disease with previous coronary artery bypass graft x4. COURSE OF HOSPITALIZATION: The patient is a 72-year-old male with a history of coronary artery disea se with CABG x4 in 2007. He had a previous PCI of the saphenous to circumflex in 2017. He presented to Dr. Kaur with complaint of chest discomfort. He had a nuclear stress test done, which came latrell k abnormal. It was recommended that he proceed with cardiac angiogram to further evaluate. He did f ind obstruction in the proximal and ostial solomon left circumflex as well as a posterior left ventric ular branch of the circumflex distal to the saphenous vein graft. Stent was placed with no complicat ions. He was taken to PCU for overnight observation, where he has done well. He has been up ambulat ing in his room with no right groin discomfort. Right groin access site is intact with no bleeding, induration, or pain. MEDICATION ALLERGIES: Penicillin, sulfa, JEANE inhibitors listed, however, he is tolerating lisinopril . HOME MEDICATION: He will continue on lisinopril 5 mg daily, Protonix 40 mg daily, Toprol-XL 25 mg da trice, Lasix 20 mg daily, Lipitor 40 mg daily, Plavix 75 mg daily, melatonin 3 mg at bedtime; aspirin 3 25 mg daily for 4 weeks, then we will reduce to 81 mg daily. PHYSICAL EXAMINATION: VITAL SIGNS: On day of discharge, blood pressure 118/80, pulse rate 64 and re gular, oxygen saturation 92% on room air. EKG shows normal sinus bradycardia with a heart rate of 56 . HEART: Rate regular with no murmurs, rubs, gallops. LUNGS: Clear to auscultation. No wheezes, rales, or rhonchi. LOWER EXTREMITIES: Peripheral pulses are 2+ bilaterally. GROIN: Right groin site is intact with no bleeding, induration, or pain. PROCEDURES: 1. Angiogram, 04/05/2018. This was selective coronary angiography with left heart catheterization a nd left ventriculogram. 2. Selective saphenous vein graft angiography to ramus intermedius or diagonal, noted to be occluded . 3. Saphenous vein graft to the left circumflex, posterior descending artery, and posterior left vent ricular branches as a jump graft. 4. Left internal mammary artery angiography to the left anterior descending. 5. Percutaneous transluminal coronary angioplasty and stent placement of the proximal and dominant l eft circumflex with a 4.0 x 16 Synergy drug-eluting stent. 6. Percutaneous transluminal coronary angioplasty and stent placement to the posterior left ventricu lar branch distal to the vein graft tie-in, the posterior left ventricular branch with overlapping 2. 5 x 8, 2.5 x 8, and 2.5 x 8 Synergy drug-eluting stents. 7. Cutting balloon angioplasty of the distal left main and ostial left circumflex with the use of a 2.5 x 8 [employer] cutting balloon. There were no complications. Electrocardiogram on 04/06/2018, shows a ventricular rate of 55 beats a minute with right bundle bran ch block. DISCHARGE PLAN: 1. He will be discharged home on a cardiac, low-fat, low-sodium diet. He is to participate in [facility] rehab. He will go home on aspirin 325 mg for 4 weeks, then we will reduce his aspirin to 81 mg da trice. 2. Right groin precautions for 7 days. 3. No lifting, pushing, pulling greater than 10 pounds. 4. No sitting in a tub of water. Okay to shower. 5. Should site bleed, hold firm pressure to site and go to the emergency room. 6. Keep site clean with soap and water. No ointments. 7. Follow up with Jaquelin Nguyen, Nurse Practitioner, 04/17/2018. 8. Call the [facility] for any questions or concerns. At this time, he currently is stable for d ischarge. /[id number]/MODL
[2018-04-07] MEDS ORDERED: ATORVASTATIN CALCIUM 40 MG TAB PO SCH (09:00)
[2018-04-07] MEDS ORDERED: PANTOPRAZOLE SODIUM 40 MG TAB PO SCH (09:00)
[2018-04-07] MEDS ORDERED: LISINOPRIL 5 MG TAB PO SCH (09:00)
[2018-04-07] MEDS ORDERED: FUROSEMIDE 20 MG TAB PO SCH (09:00)
[2018-04-07] MEDS ORDERED: METOPROLOL SUCCINATE XR 25 MG TAB PO SCH (09:00)
== END 2018-04-06 14:00 | disposition home or self-care (01) ==
LOC: FCATH 07:22 → F2W 12:12
PROVIDERS: ADMIT Internal Medicine Cardiovascular Disease; ATTEND Internal Medicine Cardiovascular Disease
DX: I25.719 Atherosclerosis of autologous vein coronary artery bypass graft(s) with unspecified angina pectoris (principal); I25.119 Atherosclerotic heart disease of native coronary artery with unspecified angina pectoris; T82.897A Other specified complication of cardiac prosthetic devices, implants and grafts, initial encounter; R94.39 Abnormal result of other cardiovascular function study; I10 Essential (primary) hypertension; Z79.82 Long term (current) use of aspirin; Z85.46 Personal history of malignant neoplasm of prostate; Z95.1 Presence of aortocoronary bypass graft
CPT/HCPCS: 93005; 93459; C1725; C1760; C1769; C1874; C1887; C9600; C9601; J0583; J1644; J2250; J3010; Q9967